=== PATIENT | male | born 2000 | race Caucasian/White ===

== ENCOUNTER 2022-11-10 15:05 | Emergency (ER) | payer OTHER ==
[~2022-11-10] VITALS: Ht 167.6 cm; Wt 63.5 kg
[~2022-11-10 15:05] MED LIST: ALBU.083IS IH; ALBU90OI INH; AZIT100SU PO; AZIT200SU PO; RXAZITHSU PO
[2022-11-10 17:02] VITALS: BP 124/65
== END 2022-11-10 17:04 | disposition home or self-care (01) ==
LOC: ER 15:05
DX: T22.221A Burn of second degree of right elbow, initial encounter (principal); T20.22XA Burn of second degree of lip(s), initial encounter; T23.161A Burn of first degree of back of right hand, initial encounter; T20.20XA Burn of second degree of head, face, and neck, unspecified site, initial encounter; T31.0 Burns involving less than 10% of body surface; Z88.0 Allergy status to penicillin
CPT/HCPCS: 36415; 99284